=== PATIENT | male | born 1955 | race African-American/Black ===

== ENCOUNTER → 2017-05-15 | Emergency (ER) | payer OTHER ==
[~2017-05-15] VITALS: Ht 182.9 cm; Wt 103.5 kg
[~2017-05-15] MED LIST: ANTIFUNGAL CREA15 GM TP; CHILD ASPIRIN81 M1 PO; COREG12.5 M1 PO; ELAVIL25 MG PO; FISH OIL + D31 EACH PO; FLOMAX0.4 MG PO; GABAPENTIN600 MG PO; GAS-X80 MG PO; GLUCOTROL5 MG PO; LEVEMIR100 UNIT/2 SC; MUSCLE RUB CREA85 GM TP; NIFEDIPINE ER60 MG PO; NOVOLIN,HU100 UNITS1 SC; PRINIVIL10 MG PO; ROBAXIN500 MG PO; ZANTAC150 MG PO; ZOCOR20 MG PO
[2017-05-15 22:18] LABS: HEMATOCRIT 44.4 % (38.0-50.0); MCH 26.6 PG (29.0-34.0); MCV 83.1 FL (86-99); MEAN PLAT.VOLUME 11.3 uM^3 (9.0-12.4); PLATELET COUNT 133 K/uL (156-360); RBC DIS.WIDTH-CV 12.9 % (11.8-14.6); RBC DIS.WIDTH-SD 38.9 % (39-53); RED BLOOD COUNT 5.34 M/uL (4.00-5.50); WHITE BLOOD COUNT 8.5 K/uL (4.1-10.2)
[2017-05-15 22:26] LABS: CHLORIDE 110 mEq/L (99-109); POTASSIUM 4.6 mEq/L (3.7-5.4); SODIUM 139 mEq/L (136-147)
[2017-05-15 22:28] LABS: GLUCOSE 74 mg/dL (70-99)
[2017-05-15 22:29] LABS: ANION GAP 9 MEQ/L (2-14)
[2017-05-15 22:31] LABS: GFR ESTIMATE (CALCULATED) 32 mL/min/
[2017-05-15 22:32] LABS: INTER. NORMALIZED RATIO 1.1; PROTHROMBIN TIME 10.9 (9.2-11.2); PTT 31.5 (25-32); UREA NITROGEN (BUN) 32 mg/dL (9-23)
[2017-05-15 22:34] LABS: TROP-I INTERPRETATION NEGATIVE; TROPONIN-I < 0.01 ng/mL (0.0-0.30)
[2017-05-16 01:30] VITALS: BP 100/55
== END | disposition short-term general hospital (02) ==
LOC: EME 21:37
DX: R07.9 Chest pain, unspecified (principal); N28.9 Disorder of kidney and ureter, unspecified; I10 Essential (primary) hypertension; I25.10 Atherosclerotic heart disease of native coronary artery without angina pectoris; J44.9 Chronic obstructive pulmonary disease, unspecified; E11.9 Type 2 diabetes mellitus without complications; Z79.4 Long term (current) use of insulin; E78.5 Hyperlipidemia, unspecified; I25.2 Old myocardial infarction; B19.20 Unspecified viral hepatitis C without hepatic coma; Z95.810 Presence of automatic (implantable) cardiac defibrillator; Z87.891 Personal history of nicotine dependence; Z88.0 Allergy status to penicillin
CPT/HCPCS: 71020; 80048; 84484; 85027; 85379; 85610; 85730; 93005; 94640; 99281; 99285; J2270; J7644